=== PATIENT | male | born 1990 | race Caucasian/White ===

== ENCOUNTER 2023-03-16 13:47 | Outpatient (AMB) | payer OTHER, MEDICAID, SELFPAY ==
[2023-03-16 13:48] VITALS: BP 118/78; PULSE 85; O2SAT 97; BMI 28.3
--- NOTE | 2023-03-16 13:48 | A.OFFPC_ITS ---
Intake Visit Reasons: [facility] G0439 Allergies No Known Allergies Allergy (Verified 09/10/22 15:15) Tobacco use date assessed: 09/10/22 [facility] Medical History Anxiety Overweight (BMI 25.0-29.9) Smoker Surgical History No pertinent past surgical history Family History Father Hypertension Asthma Mother Hypertension Brother No problems noted. Sister No problems noted. Social History Housing: House Alcohol intake: current Alcohol intake frequency: holidays/special occasions only Patient Tobacco Use Status: Current everyday Tobacco user Tobacco use type: Cigarette Cigarette Packs Per Day: 1 Cigarettes Per Day: 20 e-Cigarette/Vaping Use: Never Used Second Hand Smoke Exposure: Yes service: No Current occupational status: disabled Questionnaire Thrive Questionnaire Date Thrive assessed: 09/10/22 DASHA-7 AMB Questionnaire DASHA-7 Date DASHA - 7 assessed: 09/10/22 Source: Developed by Drs. Patrice Pedro, Liset Giles, Derek Valdivia and colleagues, with an educational aundrea from [employer]. Physical exam (Primary Care) Tobacco/Smoking Status: Tobacco use Status Tobacco use date assessed 09/10/22 09/10/22 14:56 Patient Tobacco Use Status Current everyday Tobacco 09/10/22 14:48 Tobacco use type Cigarette 09/10/22 14:56 e-Cigarette/Vaping Use Never Used 09/10/22 14:56 Thrive Assessment: Date of Thrive Assessment Date Thrive assessed 09/10/22 09/10/22 14:56 Coding Diagnoses
--- NOTE | 2023-03-16 13:48 | A.OFFVIS_ITS ---
Intake Vital Signs 03/16/23 13:48 Height 5 ft 5.5 in Weight 173 lb BMI 28.3 BP 118/78 Blood Pressure Location Lt brachial Position Sitting Pulse 85 Pulse Source Pulse Oximeter Pulse Oximetry (%) 97 Oxygen Delivery Method Room Air Intake Visit Reasons: [facility] [[email or web address]] G0439 Picc Nurse Required: No Accompanied by: Self / Same As Patient Allergies No Known Allergies Allergy (Verified 03/16/23 14:59) Medication List - Last Reconciled 03/16/23 by Bebeto Lott MD No Known Home Meds Do you need a note to return to daycare/school/sports/work: No HPI [facility] [[email or web address]] G0439 HPI Details Patient comes in today for his Annual Medicare Wellness Exam States that he currently feels okay He denies any headaches or dizziness Denies any chest pains, no SOB No nausea/vomiting, no abdominal pain No change in bowel habits noted IPPE/AWV: c/o of Annual Wellness Visit, subsequent visit. Medical / Social History Reviewed Past Medical History Yes . [place] of Care / Care Team list updated Yes . Surgical/Hospitalization History Yes . Current Medications (including OTC and supplements) Yes . Family History Yes . Tobacco Control form Yes . AUDIT-C (Alcohol use) form Yes . Illicit drug use in Social History Yes . Current diagnosis of depression? No Appropriate PHQ2/PHQ9 completed Yes . Data entered by Payroll Officer and reviewed by provider Home Safety Throw rugs? No Grab bars? No Raised toilet seats? No Working smoke detectors? Yes Working carbon monoxide detectors? Yes Data entered by Payroll Officer and reviewed by provider Activities of Daily Living (ADLs) Difficulty bathing or showering? No Difficulty dressing? No Difficulty using the toilet? No Difficulty getting in and out of bed? No Difficulty walking? No Receives help from another person with any of the above tasks? No Instrumental Activities of Daily Living (IADLs) Uses the telephone without help Gets to places out of walking distance without help Goes shopping for groceries without help Prepares own meals without help Does own minor home maintenance without help Does own laundry without help Does own housework without help Manages own money without help Currently takes medications? Yes Takes medication without help End-of-Life Planning Discussed advance directive Yes Advance directive on file Discussed wishes expressed in advance directive agreed to following patient's wishes Fall Risk: Fall History Have you had any falls with injury in the past year? No . Have you had two or more falls in the past year? No . Fall Risk Assessment: No falls in the past year . HRA filled out by the patient, reviewed by Provider and scanned. [facility] Medical History Anxiety Overweight (BMI 25.0-29.9) Smoker Surgical History No pertinent past surgical history Family History Father Hypertension Asthma Mother Hypertension Brother No problems noted. Sister No problems noted. Social History Housing: House Alcohol intake: current Alcohol intake frequency: holidays/special occasions only Patient Tobacco Use Status: Current everyday Tobacco user Tobacco use type: Cigarette Cigarette Packs Per Day: 1 Cigarettes Per Day: 20 e-Cigarette/Vaping Use: Never Used Second Hand Smoke Exposure: Yes service: No Current occupational status: disabled Questionnaire Medicare Wellness Checkup What gender do you identify with?: male During the past 4 weeks, how much have you been bothered by emotional problems such as feeling anxious, depressed, irritable, sad or downhearted, and blue?: not at all During the past 4 weeks, has your physical & emotional health limited your social activities with family, friends, neighbors, or groups?: not at all During the past 4 weeks, how much bodily pain have you generally had?: very mild pain During the past 4 weeks, was someone available to help you if you needed & wante d help?: yes, a little During the past 4 weeks, what was the hardest physical activity you could do for at least 2 minutes?: light Can you get to places out of walking distance without help? (For eg., can you travel alone on buses, taxis or drive your car?): Yes Can you go shopping for groceries or clothes without someone's help?: Yes Can you prepare your own meals?: Yes Can you do your housework without help?: No Because of any health problems, do you need the help of another person with your personal care needs such as eating, bathing, dressing or getting around the house?: No Can you handle your own money without help?: Yes During the past 4 weeks, how would you rate your health in general?: good During the past 4 weeks how have things been going for you?: very well; could hardly better Are you having difficulties driving your car?: no Do you always fasten your seat belt when you are in a car?: no During past 4 weeks, have you been bothered by the following: never: Falling or dizzy when standing up, Sexual problems?, Trouble eating well? and Problems using the telephone?, sometimes: Tiredness or fatigue? and often: Teeth or denture problems? Have you fallen 2 or more times in the past year?: No Are you afraid of falling?: No Are you a smoker?: yes, and I might quit During the past 4 weeks, how many drinks of wine, beer, or other alcoholic beverages did you have?: no alcohol at all Do you exercise for about 20 minutes 3 or more times a week?: no, I usually do not exercise this much Have you been given information to help with the following?: yes: Hazards in your house that might hurt you? and yes: Keeping track of your medications? How often do you have trouble taking medicines the way you have been told to take them?: I do not have to take medicine How confident are you that you can control & manage most of your health problems?: somewhat confident What is your race?: White Mini Mental State Exam (MMSE) Orientation What is the (year) (season) (date) (day) (month)?: year, season, date, day and month Where are we (state) (county) (town or city) (hospital) (floor)?: state, county, town or city, hospital/clinic and floor Score Score: 10 Activity of Daily Living Bathing - sponge bath, tub bath or shower: receives no assistance (gets in/out by self, if usual bathing means Dressing - getting clothes from closets & drawers, including inner/outer garments & fasteners.: gets clothes & gets completely dressed without help Toileting - going to the 'toilet room' for urine/bowel elimination & cleaning self/arranging clothes: goes to toilet room, cleans self, arranges clothes without help Transfer: moves in & out of bed and chair without help (may use support object) Continence: controls urination/bowel movements completely by self Feeding: feeds self without help Total Score: 0 Information obtained from: patient Using telephone: independent Traveling: independent Shopping: independent Preparing meals: independent Housework: independent Taking medicine: independent Managing money: independent PHQ-9 Over the last 2 weeks, how often have you been bothered by any of the following problems? 1. Little interest or pleasure in doing things: not at all 2. Feeling down, depressed, or hopeless: not at all 3. Trouble falling or staying asleep, or sleeping too much: several days 4. Feeling tired or having little energy: several days 5. Poor appetite or overeating: not at all 6. Feeling bad about yourself - or that you are a failure or have let yourself or your family down: not at all 7. Trouble concentrating on things, such as reading the newspaper or watching television: not at all 8. Moving or speaking so slowly that other people could have noticed. Or the opposite - being so fidgety or restless that you have been moving around a lot more than usual: not at all 9. Thoughts that you would be better off or of hurting yourself in some way: not at all Total score: 2 Depression Screening Interpretation: Negative 30807 - PHQ-9 Billing: Yes Source: Developed by Drs. Patrice Pedro, Liset Giles, Derek Valdivia and colleagues, with an educational aundrea from [employer]. DASHA-7 AMB Questionnaire DASHA-7 Date DASHA - 7 assessed: 09/10/22 Feeling nervous, anxious, or on edge: 0 = Not at all Not being able to stop or control worryin = Not at all Worrying too much about different things: 0 = Not at all Trouble relaxin = Not at all Being so restless that it is hard to sit still: 0 = Not at all Becoming easily annoyed or irritable: 0 = Not at all Feeling afraid as if something awful might happen: 0 = Not at all Total DASHA-7 score (0-4 normal; 5-9 mild; 10-14 moderate; 15-21 severe): 0 Source: Developed by Drs. Patrice Pedro, Liset Giles, Derek Valdivia and colleagues, with an educational aundrea from [employer]. DASHA-7 Assessment Billing DASHA-7 Assessment Tool: DASHA-7 Assessment 56390 Thrive Questionnaire Date Thrive assessed: 03/16/23 I am a: Patient What is your living situation today?: I have a steady place to live Within the past 12 months, did the food you bought not last and you didn't have the money to get more?: Never true Within the past 12 months, did you worry whether your food would run out before you got money to buy more?: Never true Do you have trouble paying for medicines?: No Do you have trouble getting transportation to medical appointments?: No Do you have trouble paying your heating and electricity bill?: No Do you have trouble taking care of your child, family member or friend?: No Do you have trouble with day-to-day activities such as bathing, preparing meals, shopping, managing finances, etc.?: No Are you currently unemployed and looking for a job?: No Are you interested in more education?: No Please select the resources that you would like help with: None Currently or been in a relationship where the following occur: no concerns reported PHQ-2/PHQ-9 PHQ-2 Over the last 2 weeks, how often have you been bothered by any of the following problems? 1. Little interest or pleasure in doing things: not at all 2. Feeling down, depressed, or hopeless: not at all Total score: 0 If score is 3 or greater, continue 3. Trouble falling or staying asleep, or sleeping too much: several days 4. Feeling tired or having little energy: several days 5. Poor appetite or overeating: not at all 6. Feeling bad about yourself - or that you are a failure or have let yourself or your family down: not at all 7. Trouble concentrating on things, such as reading the newspaper or watching television: not at all 8. Moving or speaking so slowly that other people could have noticed. Or the opposite - being so fidgety or restless that you have been moving around a lot more than usual: not at all 9. Thoughts that you would be better off or of hurting yourself in some way: not at all Total score: 2 0-4 None-Minimal, 5-9 Mild, 10-14 Moderate, 15-19 Moderately Severe, 20-27 Severe Source: Developed by Drs. Patrice Pedro, Liset Giles, Derek Valdivia and colleagues, with an educational aundrea from [employer]. Review of Systems Const Denies chills, Denies difficulty sleeping, Denies fatigue, Denies fever(s) and Denies headache(s) ENT Denies dysphagia, Denies dizziness, Denies otalgia, Denies headache(s), Denies neck pain, Denies odynophagia and Denies sore throat Card Denies chest pain, Denies palpitations and Denies dyspnea Resp Denies cough and Denies dyspnea GI Denies abdominal pain, Denies constipation, Denies dysphagia, Denies heartburn, Denies diarrhea, Denies nausea, Denies odynophagia and Denies vomiting Denies dysuria, Denies nocturia and Denies urinary frequency Musc Denies neck pain Neuro Denies dizziness and Denies headache(s) Psych Denies anxiety (controlled) and Denies depression (controlled; no issues recently) Endo Denies fatigue and Denies palpitations Physical Exam Vital Signs: Last Vital Signs Pulse 85 03/16/23 13:48 BP 118/78 03/16/23 13:48 Pulse Ox 97 03/16/23 13:48 Oxygen Delivery Method Room Air 03/16/23 13:48 BMI result Body Mass Index 28.3 IPPE/AWV: Balance Romberg Yes . Tandem walk Yes . Walk and Turn Yes . Rise from sit to stand Yes . Vision Corrective lens No Vision screen pass Hearing Whisper test pass . Urinary incont. no. EKG Not clinically necessary. Const General: no acute distress and alert HEENT Ears: TM's normal bilaterally Throat: Yes posterior oropharynx normal and Yes tonsils normal (no TP congestion noted) Neck Neck: Yes no lymphadenopathy and Yes supple Resp Auscultation: clear to auscultation bilaterally, no rales and no wheezes Cardio Rate: regular rate Rhythm: regular rhythm Heart sounds: no murmurs GI Palpation (GI): Soft to palpation and nontender Auscultation: normal bowel sounds Extrem General: Yes no clubbing, cyanosis or edema Assessment & Plan Assessment & Plan (1) Medicare annual wellness visit, subsequent: Code(s): Z00.00 - Encounter for general adult medical examination without abnormal findings Plan: HRA form completed and discussed with patient; form will be scanned into patient's chart He has not had any follow up labs done in a while; states that he will go and get his previously ordered labs done tomorrow morning (2) Anxiety: Code(s): F41.9 - Anxiety disorder, unspecified Plan: States that he was doing well on Rx but he ran out of his med last year He was started back on Citalopram 10 mg QD but he ran out again and decided not to call for refills or go back on it a few months ago States that he continues to follow up with his therapist/counselor weekly and feels that he is doing okay without any Rx at this time (3) Smoker: Code(s): F17.200 - Nicotine dependence, unspecified, uncomplicated Plan: Counseled again to continue working on quitting smoking completely - is still smoking about 5 cigarettes a day (4) Overweight (BMI 25.0-29.9): Code(s): E66.3 - Overweight Plan: Reinforced diet/exercise as tolerated/lose weight Plan Follow up in 6 months Quality Reporting (2019) Depression/Bipolar (159/160/161/177) PHQ-9: Total score: 2 Coding Level of Care Code Medicare Subsequent (G0439) Est Pt Level 3 (76106) Diagnoses Medicare annual wellness visit, subsequent Z00.00 Anxiety F41.9 Smoker F17.200 Overweight (BMI 25.0-29.9) E66.3 Additional Codes DASHA-7 Assessment Billing - DASHA-7 Assessment Tool: DASHA-7 Assessment 49220 ([id number])
== END 2023-03-16 15:10 | disposition home or self-care (01) ==
PROVIDERS: PCP Internal Medicine; Visit Provider Internal Medicine
DX: Z00.00 Encounter for general adult medical examination without abnormal findings (principal); F41.9 Anxiety disorder, unspecified; F17.200 Nicotine dependence, unspecified, uncomplicated; E66.3 Overweight
CPT/HCPCS: G0439